=== PATIENT | female | born 1955 | race African-American/Black ===

== ENCOUNTER 2017-07-12 17:07 | Emergency (ER) | payer SELFPAY ==
[2017-07-12] MEDS ORDERED: Ondansetron ODT 4 MG TAB ONE (17:24)
== END 2017-07-12 18:02 | disposition home or self-care (01) ==
LOC: SCSER 17:07
DX: B34.9 Viral infection, unspecified (principal); I10 Essential (primary) hypertension
CPT/HCPCS: 99283; Q0162

== ENCOUNTER 2018-10-16 10:51 | Emergency (ER) | payer SELFPAY ==
[2018-10-16] MEDS ORDERED: Ondansetron PF 4 MG/2 ML Vial ONE (11:02)
[2018-10-16] MEDS ORDERED: Pantoprazole 40 MG VIAL ONE (11:23)
[2018-10-16 11:28] LABS: #Basophils 0.1 thou/uL (0.0-0.2); #Lymphocytes 1.8 thou/uL (1.20-3.40); #Monocytes 0.8 thou/uL (0.11-0.59); #Neutrophils 4.8 thou/uL (1.40-6.50); %Basophils 1.4 % (0.0-1.0); %Eosinophils 0.3 % (0.0-10.0); %Lymphocytes 24.1 % (21.0-51.0); %Monocytes 10.4 % (0.0-10.0); %Neutrophils 63.8 % (42.0-75.0); Hemoglobin 13.6 g/dL (12.0-16.0); Mean Corpuscular HGB CONC 30.5 g/dL (32.0-36.0); Mean Corpuscular Hemoglobin 26.9 pg (27.0-31.0); Mean Corpuscular Volume 88.2 fL (78.0-98.0); Mean Platelet Volume 5.6 fL (7.4-10.4); Platelet Count 353 thou/uL (130-400); RBC Distribution Width 12.5 % (11.5-14.5); Red Blood Cell (RBC) Count 5.05 mill/uL (4.20-5.40); White Blood Cell (WBC) Count 7.5 thou/uL (4.8-10.8)
[2018-10-16 11:38] LABS: ALT (SGPT) 19 U/L (8-55); AST (SGOT) 34 U/L (5-34); Albumin 4.3 g/dL (3.4-4.8); Alkaline Phosphatase 74 U/L (40-150); Anion Gap 16 mmol/L (10-20); BUN (Urea Nitrogen) 26 mg/dL (9.8-20.1); Bilirubin, Total 0.4 mg/dL (0.2-1.2); Calc. Creatinine Clearance 0 mL/min (70-130); Calcium 9.5 mg/dL (7.8-10.44); Carbon Dioxide 23 mmol/L (23-31); Chloride 101 mmol/L (98-107); Estimated GFR-MDRD 40; Globulin 4.8 g/dL (2.4-3.5); Glucose 89 mg/dL (80-115); Potassium 3.7 mmol/L (3.5-5.1); Protein, Total 9.1 g/dL (6.0-8.3); Sodium 136 mmol/L (136-145)
== END 2018-10-16 12:38 | disposition home or self-care (01) ==
LOC: SCSER 10:51
DX: R11.2 Nausea with vomiting, unspecified (principal); I10 Essential (primary) hypertension; Z79.899 Other long term (current) drug therapy
CPT/HCPCS: 80053; 84484; 85025; 93005; 96361; 96374; 96375; C9113; J2405